=== PATIENT | female | born 1970 | race Caucasian/White ===

== ENCOUNTER → 2016-04-13 | Outpatient (CLI) | payer BC ==
--- NOTE | 2016-04-14 11:26 | MM ---
Reason for exam: screening (asymptomatic). Last mammogram was performed 5 months ago. History: Patient had first child at age 33. Family history of breast cancer in sister at age 47. MG discontinued stereo core LT of the left breast, April 22, 2015. Physical Findings: A clinical breast exam by your physician is recommended on an annual basis and results should be correlated with mammographic findings. MG Screening Mammo w CAD Bilateral CC and MLO view(s) were taken. Prior study comparison: November 11, 2015, left breast MG diagnostic mammo LT w CAD. April 14, 2015, left breast MG 3d work up w/cad LT. There are scattered fibroglandular densities. There is no discrete abnormality. No significant changes when compared with prior studies. ASSESSMENT: Negative, BI-RAD 1 RECOMMENDATION: Routine screening mammogram of both breasts in 1 year.
== END | disposition home or self-care (01) ==
LOC: RADMAMWWP 07:37
PROVIDERS: ATTEND Family Medicine
DX: Z12.31 Encounter for screening mammogram for malignant neoplasm of breast (principal)

== ENCOUNTER → 2020-04-27 | Outpatient (CLI) | payer BC ==
--- NOTE | 2020-04-29 09:55 | MM ---
Reason for exam: screening (asymptomatic). Last mammogram was performed 4 years ago. History: Patient had first child at age 33. Family history of breast cancer in sister at age 47. MG discontinued stereo core LT of the left breast, April 22, 2015. Took hormonal contraceptives for 1 year. Physical Findings: A clinical breast exam by your physician is recommended on an annual basis and results should be correlated with mammographic findings. MG Screening Mammo w CAD Bilateral CC and MLO view(s) were taken. Prior study comparison: April 13, 2016, bilateral MG screening mammo w CAD. November 11, 2015, left breast MG diagnostic mammo LT w CAD. The breast tissue is heterogeneously dense. This may lower the sensitivity of mammography. Posterior upper outer quadrant focal asymmetry on the right is more defined. Anterior medial asymmetric density also on the right is more defined. ASSESSMENT: Incomplete: need additional imaging evaluation, BI-RAD 0 RECOMMENDATION: Special view mammogram of the right breast. (3D) If lesion persists on supplemental views, image directed ultrasound is recommended. [facility] will attempt to contact patient to return for supplemental views and ultrasound if indicated.
== END ==
LOC: RADMAMWWP 09:28
PROVIDERS: ATTEND Family Medicine
DX: Z12.31 Encounter for screening mammogram for malignant neoplasm of breast (principal); Z80.3 Family history of malignant neoplasm of breast
CPT/HCPCS: 77067

== ENCOUNTER → 2020-05-07 | Outpatient (CLI) | payer BC ==
--- NOTE | 2020-05-08 12:04 | MM ---
Reason for exam: additional evaluation requested from abnormal screening. Last mammogram was performed less than 1 month ago. History: Patient had first child at age 33. Family history of breast cancer in sister at age 47. MG discontinued stereo core LT of the left breast, April 22, 2015. Took hormonal contraceptives for 1 year. Physical Findings: Nurse did not find any significant physical abnormalities on exam. MG 3D Work Up W/Cad RT Spot compression CC, spot compression MLO, and LM view(s) were taken of the right breast. Prior study comparison: April 27, 2020, bilateral MG screening mammo w CAD. April 13, 2016, bilateral MG screening mammo w CAD. The breast tissue is heterogeneously dense. This may lower the sensitivity of mammography. Persistent nodularity. Ultrasound recommended. These results were verbally communicated with the patient and result sheet given to the patient on 05/07/20. ASSESSMENT: Incomplete: need additional imaging evaluation, BI-RAD 0 RECOMMENDATION: Ultrasound of the right breast.
--- NOTE | 2020-05-08 12:06 | USB ---
Reason for exam: additional evaluation requested from abnormal screening. History: Patient had first child at age 33. Family history of breast cancer in sister at age 47. MG discontinued stereo core LT of the left breast, April 22, 2015. Took hormonal contraceptives for 1 year. US Breast Workup RT Right complete breast ultrasound includes all four quadrants, the retroareolar region and axilla. Finding demonstrates a 0.3 x 0.5 x 0.3cm oval, cystic lesion at 4 o'clock, a 0.4 x 0.4 x 0.3cm oval, solid, hyperechoic lipoma at 4 o'clock, a 0.6 x 0.5 x 0.6cm oval, cystic lesion at 10 o'clock, a 0.4 x 0.4 x 0.5c, oval, cystic lesion at 10 o'clock and a 2.8 x 1.4 x 1.0cm oval lymph node at the axilla. These results were verbally communicated with the patient and result sheet given to the patient on 05/07/20. ASSESSMENT: Probably benign, BI-RAD 3 RECOMMENDATION: Ultrasound of the right breast in 6 months.
== END | disposition home or self-care (01) ==
LOC: RADMAMWWP 07:43
PROVIDERS: ATTEND Family Medicine
DX: R92.8 Other abnormal and inconclusive findings on diagnostic imaging of breast (principal); D17.39 Benign lipomatous neoplasm of skin and subcutaneous tissue of other sites; N60.01 Solitary cyst of right breast; Z80.3 Family history of malignant neoplasm of breast
CPT/HCPCS: 77061; 77065

== ENCOUNTER → 2020-05-19 | Outpatient (CLI) | payer BC ==
[2020-05-19 08:44] VITALS: BP 131/84; PULSE 70; RESP 18; TEMP 98.4
--- NOTE | 2020-05-19 09:38 | P.HPOB ---
History of Present Illness H&P Date: 05/19/20 Chief Complaint: The patient is here for her routine gynecologic exam. This is a 50-year-old with an LMP of 2010. She is here to establish with this office. She is status post endometrial ablation in 2010 and has been amenorrheic since then. She did experience some hot flashes a few years after her ablation. It has been about 3 years since her last pelvic exam. She is without gynecologic complaints. Review of Systems Weight has been stable. She denies respiratory or cardiac problems. GI: Occasional constipation and occasional loose stools. She has had these issues since her gallbladder was removed. Past Medical History Past Medical History: Hypertension, Thyroid Disorder Additional Past Medical History / Comment(s): Hypothyroid. Obesity. 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 History of Any Multi-Drug Resistant Organisms: None Reported Past Surgical History: Section, Cholecystectomy, Uterine Ablation Additional Past Surgical History / Comment(s): Endometrial ablation 2010. Left oophorectomy 2005. Colonoscopy 2010(next after 10yr) Past Psychological History: Depression Additional Psychological History / Comment(s): Depression no longer requires medication. Smoking Status: Former smoker Past Alcohol Use History: Occasional (2 per month) Additional Past Alcohol Use History / Comment(s): Quit smoking in 2000. Past Drug Use History: None Reported Additional History: She has been since 1999. They have not been sexually active for more than 3 years. 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 - Past Family History Father Family Medical History: Myocardial Infarction ([place]) Mother Family Medical History: Cancer, CVA/TIA, Hyperlipidemia Additional Family Medical History / Comment(s): Liver cancer. Sister(s) Family Medical History: Cancer Additional Family Medical History / Comment(s): Breast cancer. Another sister had some type of gynecologic cancer but she is uncertain of the type. Medications and Allergies Home Medications Medication Instructions Recorded Confirmed Type Aspirin 81 mg PO DAILY 05/19/20 05/19/20 History Calcium Carb-Vit D 500Mg-5Mcg 1 each PO DAILY 05/19/20 05/19/20 History [Oscal 500+D 5 Mcg (200 Iu)] Levothyroxine Sodium 125 mcg PO DAILY 05/19/20 05/19/20 History Lisinopril-Hctz 20-12.5 mg 1 tab PO DAILY 05/19/20 05/19/20 History [Zestoretic 20-12.5] Zinc 50 mg PO DAILY 05/19/20 05/19/20 History Allergies Allergy/AdvReac Type Severity Reaction Status Date / Time No Known Allergies Allergy Verified 05/19/20 08:37 Exam Vital Signs Temp Pulse Resp BP Pulse Ox 05/19/20 08:40 98.4 F 70 18 131/84 99 Intake and Output 05/18/20 05/19/20 05/19/20 22:59 06:59 14:59 Other: Weight 124.738 kg Height 5 feet 6-1/2 inches, weight 275 pounds, BMI 43.7. This is a well-developed well-nourished heavyset white female who is alert and oriented times 3 in no acute distress. HEENT: Within normal limits. NECK: Supple without mass or thyromegaly. CHEST AND LUNGS: Clear to auscultation. HEART: Regular rate and rhythm. BREASTS: Are without mass or discharge. AXILLARY EXAM: Negative for adenopathy. BACK: Negative for CVA tenderness. ABDOMEN: Soft, nontender, without palpable masses. PELVIC EXAM: Normal external genitalia with minimal atrophy. Cervix and vagina appear normal with minimal atrophy. There is no unusual discharge. There is no evidence of prolapse. The uterus is midposition, nongravid size and nontender. There are no palpable adnexal masses or tenderness. Bimanual examination is somewhat limited secondary to her size. RECTAL EXAM: Rectovaginal exam is negative for mass or tenderness and is negative for occult blood. EXTREMITIES: Nontender. IMPRESSION: 1. 50-year-old probable menopausal female who is status post endometrial ablation, with normal gynecologic exam. 2. Obesity. 3. Family history of breast cancer and another sister with some other type of gynecologic cancer. Incomplete database. PLAN: 1. Pap smear cotest was performed. 2. Self breast awareness was discussed with the patient. 3. Screening mammogram was done on 04/27/2020 which required a right breast workup. This was felt to be probably benign and six-month follow-up right breast ultrasound was recommended. The order slip was given to the patient for this. 4. Osteoporosis prevention was discussed. I have stressed the importance of adequate calcium, vitamin D and regular exercise. Recommended amounts of calcium and vitamin D were also discussed. 5. She states she is due for her colonoscopy and has scheduled for later this month. 6. I have recommended that she try to find out what type of cancer her sister had. She states it may have been cervical cancer but it may have been ovarian cancer. If she finds that her sister had ovarian cancer, I will be recommending yearly pelvic ultrasounds. We have also discussed possible cancer genetics testing as an option if her sister had ovarian cancer. 7. She was advised to return in one year for her annual well woman exam.
== END | disposition home or self-care (01) ==
LOC: WWCWWP 08:26
PROVIDERS: ATTEND Obstetrics & Gynecology
DX: Z12.31 Encounter for screening mammogram for malignant neoplasm of breast (principal); E66.9 Obesity, unspecified; Z80.3 Family history of malignant neoplasm of breast; E03.9 Hypothyroidism, unspecified; I10 Essential (primary) hypertension; Z87.891 Personal history of nicotine dependence

== ENCOUNTER 2020-06-05 11:20 | Day surgery (SDC) | payer BC ==
[2020-06-02 11:14] VITALS: BMI 43.0
[~2020-06-05 11:20] MED LIST: LACTATED RINGERS 1,000 ML IV SCH
[2020-06-05 11:58] VITALS: TEMP 98
[2020-06-05] MEDS ORDERED: LIDOCAINE 1% INJ 10MG/ML (20 ML MDV) ONE (12:32)
[2020-06-05] MEDS ORDERED: PROPOFOL 10 MG/ML 20 ML VIAL IV ONE (12:32)
--- NOTE | 2020-06-05 12:50 | P.PCN ---
Date of Procedure: 06/05/20 Procedure(s) Performed: BRIEF HISTORY: Patient is a 50-year-old pleasant white female scheduled for an elective colonoscopy as a part of screening for colorectal neoplasia. PROCEDURE PERFORMED: Colonoscopy. PREOPERATIVE DIAGNOSIS: Screening for colon cancer. IV sedation per Anesthesia. PROCEDURE: After informed consent was obtained, the patient, was brought into the endoscopy unit. IV sedation was administered by Anesthesia under continuous monitoring. Digital rectal examination was normal. Initially the Olympus CF-160 flexible video colonoscope was then inserted in the rectum, gradually advanced into the cecum without any difficulty. Careful examination was performed as the scope was gradually being withdrawn. Ileocecal valve and the appendiceal orifice were visualized and appeared normal. Prep was excellent. Mucosa of the cecum, ascending colon, transverse colon, descending colon, sigmoid colon, and rectum appeared normal. Retroflexion was performed in the rectum and no lesions were seen. The patient tolerated the procedure well. IMPRESSION: Normal-appearing colon from rectum to cecum with no evidence of colorectal neoplasia . RECOMMENDATIONS: Findings of this examination were discussed with the patient as well as a family. She was advised to have a repeat screening colonoscopy in 10 years.
[2020-06-05 12:56] VITALS: PULSE 66; RESP 18
[2020-06-05 13:19] VITALS: BP 147/80
== END 2020-06-05 13:32 | disposition home or self-care (01) ==
LOC: ORWHC2ENDO 11:20
PROVIDERS: ATTEND Internal Medicine Gastroenterology
DX: Z12.11 Encounter for screening for malignant neoplasm of colon (principal); I10 Essential (primary) hypertension; E07.9 Disorder of thyroid, unspecified; K21.9 Gastro-esophageal reflux disease without esophagitis; Z79.82 Long term (current) use of aspirin; Z79.890 Hormone replacement therapy; Z79.899 Other long term (current) drug therapy
CPT/HCPCS: 81025; J2001; J2704; G0121; 45378

== ENCOUNTER → 2020-10-29 | Outpatient (CLI) | payer BC ==
--- NOTE | 2020-10-29 11:37 | USB ---
Reason for exam: follow-up at short interval from prior study. History: Patient had first child at age 33. Family history of breast cancer in sister at age 47. MG discontinued stereo core LT of the left breast, April 22, 2015. Took hormonal contraceptives for 1 year. Physical Findings: Nurse did not find any significant physical abnormalities on exam. US Breast Limited RT Right limited breast ultrasound including focal area of concern, retroareolar and axilla demonstrates a 0.4 x 0.3 x 0.3cm cystic lesion at 4 o'clock, a 0.4 x 0.4 x 0.4cm cystic lesion at 10 o'clock, these two likely correspond to the mammographic findings, 6 month follow up mammogram recommended and a 0.4 x 0.5 x 0.4cm cystic lesion at the posterior nipple. Scanned 3-6 o'clock and 9-12 o'clock including axilla. These results were verbally communicated with the patient and result sheet given to the patient on 10/29/20. ASSESSMENT: Probably benign, BI-RAD 3 RECOMMENDATION: Follow-up diagnostic mammogram of both breasts in 6 months.
== END | disposition home or self-care (01) ==
LOC: RADUSWWP 07:37
PROVIDERS: ATTEND Obstetrics & Gynecology
DX: N60.01 Solitary cyst of right breast (principal); Z80.3 Family history of malignant neoplasm of breast; Z79.3 Long term (current) use of hormonal contraceptives

== ENCOUNTER → 2020-11-11 | Outpatient (CLI) | payer BC ==
--- NOTE | 2020-11-12 10:41 | US ---
EXAMINATION TYPE: US thyroid st tissue head/neck DATE OF EXAM: 11/11/2020 COMPARISON: NONE CLINICAL HISTORY: E04.9 Nontoxic goiter, unspecified. Taking thyroid medication x 10 to 12 years. GLAND SIZE: Right Lobe: 4.4 x 1.4 x 1.7 cm Overall Parenchyma: heterogenous Left Lobe: 3.9 x 1.5 x 1.2 cm Overall Parenchyma: heterogeneous Isthmus Thickness: 0.6 cm NODULES RIGHT: # of nodules measured on right: 0 LEFT: # of nodules measured on left: 1 1. 1.3 X 0.9 x 0.9 cm, upper medial, mixed cystic, hypoechoic nodule, which is wide as is tall, wit h ill-defined margins, without echogenic foci. ISTHMUS: # of nodules measured in the isthmus: 0 Bilateral neck scanned: lymph node seen by US located superior to right thyroid = 1.5 x 1.4 x 0.6cm a nd left upper neck lymph node also seen = 1.2 x 0.6 x 0.4cm. IMPRESSION: 1. The globes are diffusely heterogenous. 2. Mixed the nodule left thyroid lobe greater than 1 cm.
== END | disposition home or self-care (01) ==
LOC: RADUSWWP 15:25
PROVIDERS: ATTEND Family Medicine
DX: E04.1 Nontoxic single thyroid nodule (principal)
CPT/HCPCS: 76536

== ENCOUNTER → 2021-05-25 | Outpatient (CLI) | payer OTHER ==
--- NOTE | 2021-05-26 15:03 | MM ---
Reason for exam: screening (asymptomatic). Last mammogram was performed 1 year and 1 month ago. History: Patient had first child at age 33. Family history of breast cancer in sister at age 47. MG discontinued stereo core LT of the left breast, April 22, 2015. Took hormonal contraceptives for 1 year. Physical Findings: A clinical breast exam by your physician is recommended on an annual basis and results should be correlated with mammographic findings. MG 3D Screening Mammo W/Cad Bilateral CC and MLO view(s) were taken. XCCL view(s) were taken of the left breast. Technologist: Beth Ybarra, RT (R)(M) Prior study comparison: May 07, 2020, right breast MG 3d work up w/cad RT. April 27, 2020, bilateral MG screening mammo w CAD. The breast tissue is heterogeneously dense. This may lower the sensitivity of mammography. There is no discrete abnormality. No significant changes when compared with prior studies. ASSESSMENT: Negative, BI-RAD 1 RECOMMENDATION: Routine screening mammogram of both breasts in 1 year.
== END | disposition home or self-care (01) ==
LOC: RADMAMWWP 07:56
PROVIDERS: ATTEND Family Medicine
DX: Z12.31 Encounter for screening mammogram for malignant neoplasm of breast (principal); Z80.3 Family history of malignant neoplasm of breast
CPT/HCPCS: 77063; 77067

== ENCOUNTER → 2021-06-02 | Outpatient (CLI) | payer OTHER ==
[2021-06-02 08:04] VITALS: BP 148/83; PULSE 63; RESP 17; TEMP 97.9
--- NOTE | 2021-06-02 08:36 | P.HPOB ---
History of Present Illness H&P Date: 06/02/21 Chief Complaint: The patient is here for her routine gynecologic exam. This is a 51-year-old with an LMP of 2010. The patient has been amenorrheic since she had her endometrial ablation in 2010. The patient is without gynecologic complaints and denies any vaginal bleeding. She has been experiencing some mild hot flashes which are unchanged. Review of Systems She has lost 43 pounds over the past year and this has been intentional and done with dietary changes. She denies respiratory, cardiac, or GI problems. Past Medical History Past Medical History: Hypertension, Thyroid Disorder Additional Past Medical History / Comment(s): Hypothyroid. Obesity. 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 History of Any Multi-Drug Resistant Organisms: None Reported Past Surgical History: Section, Cholecystectomy, Uterine Ablation Additional Past Surgical History / Comment(s): Endometrial ablation 2010. Left oophorectomy 2005. Colonoscopy 2020(next after 10yr) Past Anesthesia/Blood Transfusion Reactions: No Reported Reaction Past Psychological History: Depression Additional Psychological History / Comment(s): Depression no longer requires medication. Smoking Status: Former smoker Past Alcohol Use History: Occasional (1 per month) Additional Past Alcohol Use History / Comment(s): Quit smoking in 2000. Past Drug Use History: None Reported Additional History: She has been since 1999. 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 - Past Family History Father Family Medical History: Myocardial Infarction ([place]) Mother Family Medical History: Cancer, CVA/TIA, Hyperlipidemia Additional Family Medical History / Comment(s): Liver cancer. Sister(s) Family Medical History: Cancer Additional Family Medical History / Comment(s): Breast cancer. Another sister had some type of gynecologic cancer but she is uncertain of the type. Medications and Allergies Home Medications Medication Instructions Recorded Confirmed Type Aspirin 81 mg PO DAILY 05/19/20 06/02/21 History Levothyroxine Sodium 125 mcg PO DAILY 05/19/20 06/02/21 History Lisinopril-Hctz 20-12.5 mg 1 tab PO DAILY 05/19/20 06/02/21 History [Zestoretic 20-12.5] Zinc 50 mg PO DAILY 05/19/20 06/02/21 History Allergies Allergy/AdvReac Type Severity Reaction Status Date / Time No Known Allergies Allergy Verified 06/02/21 08:01 Exam Vital Signs Temp Pulse Resp BP Pulse Ox 06/02/21 08:02 97.9 F 63 17 148/83 100 Intake and Output 06/01/21 06/02/21 06/02/21 22:59 06:59 14:59 Other: Weight 105.233 kg Height 5 feet 8 inches, weight 232 pounds, BMI 35.3. This is a well-developed well-nourished white female who is alert and oriented times 3 in no acute distress. HEENT: Within normal limits. NECK: Supple without mass or thyromegaly. CHEST AND LUNGS: Clear to auscultation. HEART: Regular rate and rhythm. BREASTS: Are without mass or discharge. AXILLARY EXAM: Negative for adenopathy. BACK: Negative for CVA tenderness. ABDOMEN: Soft, nontender, without palpable masses. PELVIC EXAM: Normal external genitalia. Cervix and vagina appear normal. There is no unusual discharge. There is no evidence of prolapse. The uterus is midposition, nongravid size and nontender. There are no palpable adnexal masses or tenderness. RECTAL EXAM: Rectovaginal exam is negative for mass or tenderness and is negative for occult blood. EXTREMITIES: Nontender. IMPRESSION: 1. 51-year-old menopausal female with normal gynecologic exam. 2. Previous ASCUS Pap smear with negative high-risk HPV testing on 05/19/2020. 3.Intentional weight loss with dietary changes. PLAN: 1. Pap smear was deferred. We will plan on repeating a Pap smear cotest at her next annual well woman examination. 2. Self breast awareness was discussed with the patient. We have also discussed symptoms associated with inflammatory breast cancer. 3. Screening mammogram was negative on 05/26/2021. This will be repeated after 1 year. 4. Osteoporosis prevention was discussed. 5. She was encouraged to continue sensible weight loss with good nutrition and exercise. 6. She is vaccinated for Covid. She did have a mild case of Covid last year. 7. She was advised to return in one year for her annual well woman exam.
== END ==
LOC: WWCWWP 07:55
PROVIDERS: ATTEND Obstetrics & Gynecology
DX: Z01.419 Encounter for gynecological examination (general) (routine) without abnormal findings (principal); E66.9 Obesity, unspecified; I10 Essential (primary) hypertension; E03.9 Hypothyroidism, unspecified; F32.A Depression, unspecified; Z87.891 Personal history of nicotine dependence; Z79.890 Hormone replacement therapy; Z79.899 Other long term (current) drug therapy; Z68.35 Body mass index [BMI] 35.0-35.9, adult

== ENCOUNTER → 2021-10-20 | Outpatient (CLI) | payer OTHER ==
--- NOTE | 2021-10-21 14:06 | MR ---
EXAMINATION TYPE: MR angio head wo con DATE OF EXAM: 10/20/2021 COMPARISON: NONE HISTORY: Family history of aneurysm TECHNIQUE: Time of flight images focusing on the [place] were performed without contrast. 2- D and 3-D postprocessing imaging is performed on independent workstation. FINDINGS: Codominant vertebral arteries patent to basilar junction. No significant focal stenosis or aneurysm in the posterior circulation. Patent right-sided posterior communicating artery. Smaller patrica iber but patent left-sided posterior communicating artery. Images of the anterior circulation show patent fenestrated anterior communicating artery. There is no significant focal stenosis or aneurysm in the anterior circulation IMPRESSION: No aneurysm at level of the [place] of [place].
== END | disposition home or self-care (01) ==
LOC: RADMRIMAIN 21:00
PROVIDERS: ATTEND Family Medicine
DX: Z82.49 Family history of ischemic heart disease and other diseases of the circulatory system (principal)
CPT/HCPCS: 70544

== ENCOUNTER → 2022-06-28 | Outpatient (CLI) | payer BC ==
--- NOTE | 2022-06-29 08:51 | MM ---
Reason for Exam: Screening (asymptomatic). Last mammogram was performed 1 year(s) and 1 month(s) ago. Patient History: Menarche at age 10. First Full-Term at age 33. Late child-bearing (after 30). Postmenopausal. Patient used Hormonal Contraceptives for 1 year. 04/22/2015, MG discontinued stereo core LT on the left side. Sister had breast cancer, age 47. Risk Values: Radha 5 year model risk: 2.3%. NCI Lifetime model risk: 16.2%. Prior Study Comparison: 04/27/2020 Bilateral Screening Mammogram, [facility]. 05/07/2020 Right Diagnostic Mammogram, [facility]. 05/25/2021 Bilateral Screening Mammogram, [facility]. Tissue Density: The breast tissue is heterogeneously dense. This may lower the sensitivity of mammography. Findings: Analyzed By CAD. There is no suspicious group of microcalcifications or new suspicious mass in either breast. Benign round calcifications within the right breast. No significant change from prior exams. Overall Assessment: Benign, BI-RAD 2 Management: Screening Mammogram of both breasts in 1 year. A clinical breast exam by your physician is recommended on an annual basis and results should be correlated with mammographic findings. Electronically signed and approved by: Sukhjinder Shrestha D.O.
== END | disposition home or self-care (01) ==
LOC: RADMAMWWP 08:13
PROVIDERS: ATTEND Family Medicine
DX: Z12.31 Encounter for screening mammogram for malignant neoplasm of breast (principal); Z78.0 Asymptomatic menopausal state; Z80.3 Family history of malignant neoplasm of breast
CPT/HCPCS: 77063; 77067

== ENCOUNTER → 2022-06-28 | Outpatient (CLI) | payer BC ==
[2022-06-28 08:36] VITALS: BP 123/78; PULSE 63; RESP 16; TEMP 98.2
--- NOTE | 2022-06-28 09:10 | P.HPOB ---
History of Present Illness H&P Date: 06/28/22 Chief Complaint: The patient is here for her routine gynecologic exam and ma mmogram. This is a 52-year-old with an LMP of 2010. She has been amenorrheic since her endometrial ablation in 2010. She believes she went through the menopausal change a couple years ago and continues to have some hot flashes but they are mild. She is without gynecologic complaints and denies any postmenopausal bleeding. Review of Systems The patient has gained 16 pounds over the last year. She denies respiratory or cardiac problems. GI: Occasional constipation. 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 Obesity. 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 History of Any Multi-Drug Resistant Organisms: None Reported Past Surgical History: Section, Cholecystectomy, Uterine Ablation Additional Past Surgical History / Comment(s): Endometrial ablation 2010. Left oophorectomy 2005. Colonoscopy 2020(next after 10yr) Past Anesthesia/Blood Transfusion Reactions: No Reported Reaction Past Psychological History: Depression Additional Psychological History / Comment(s): Depression no longer requires medication. Smoking Status: Former smoker Past Alcohol Use History: Occasional (One per week) Additional Past Alcohol Use History / Comment(s): Quit smoking in 2000. Past Drug Use History: None Reported Additional History: She has been since 1999. 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 - Past Family History Father Family Medical History: Myocardial Infarction ([place]) Mother Family Medical History: Cancer, CVA/TIA, Hyperlipidemia Additional Family Medical History / Comment(s): Liver cancer. Sister(s) Family Medical History: Cancer Additional Family Medical History / Comment(s): Breast cancer. Another sister had a neuroendocrine endometrial cancer. A third sister had a cerebral aneurysm and CVA. Medications and Allergies Home Medications Medication Instructions Recorded Confirmed Type Levothyroxine Sodium 125 mcg PO DAILY 05/19/20 06/28/22 History Lisinopril-Hctz 20-12.5 mg 1 tab PO DAILY 05/19/20 06/28/22 History [Zestoretic 20-12.5] Zinc 50 mg PO DAILY 05/19/20 06/28/22 History Cholecalciferol [Vitamin D3 (25 50 mcg PO DAILY 06/28/22 06/28/22 History Mcg = 1000 Iu)] Allergies Allergy/AdvReac Type Severity Reaction Status Date / Time No Known Allergies Allergy Verified 06/28/22 08:28 Exam Vital Signs Temp Pulse Resp BP Pulse Ox 06/28/22 08:30 98.2 F 63 16 123/78 100 Intake and Output 06/27/22 06/28/22 06/28/22 22:59 06:59 14:59 Other: Weight 112.491 kg Height 5 feet 7 inches, weight 248 pounds, BMI 38.8. This is a well-developed well-nourished white female who is alert and oriented times 3 in no acute distress. HEENT: Within normal limits. NECK: Supple without mass or thyromegaly. CHEST AND LUNGS: Clear to auscultation. HEART: Regular rate and rhythm. BREASTS: Are without mass or discharge. AXILLARY EXAM: Negative for adenopathy. BACK: Negative for CVA tenderness. ABDOMEN: Soft, nontender, without palpable masses. PELVIC EXAM: Normal external genitalia with mild atrophy. Cervix and vagina appear normal with minimal atrophy. There is no unusual discharge. There is no evidence of prolapse. The uterus is midposition, nongravid size and nontender. There are no palpable adnexal masses or tenderness. RECTAL EXAM: Rectovaginal exam is negative for mass or tenderness and is negative for occult blood. EXTREMITIES: Nontender. IMPRESSION: 1. 52-year-old menopausal female with normal gynecologic exam. 2. Previous Pap smear showed ASCUS with negative high-risk HPV testing on 05/19/2020. 3. Family history of breast cancer, endometrial cancer and liver cancer in first-degree relatives. PLAN: 1. Pap smear cotest was performed. 2. Self breast awareness was discussed with the patient. We have also discussed symptoms associated with inflammatory breast cancer. 3. Screening mammogram was done today. 4. We have again discussed cancer genetic counseling and testing. She states she will consider this. She would also like to speak with her sisters about this type of testing and there are cancers. She will let me know if she would like a referral for this. 5. Osteoporosis prevention was discussed. I have stressed the importance of adequate calcium, vitamin D and regular exercise. Recommended amounts of calcium and vitamin D were also discussed. 6. She was advised to return in one year for her annual well woman exam.
== END ==
LOC: WWCWWP 08:11
PROVIDERS: ATTEND Obstetrics & Gynecology
DX: Z01.419 Encounter for gynecological examination (general) (routine) without abnormal findings (principal); Z80.3 Family history of malignant neoplasm of breast; Z98.890 Other specified postprocedural states; Z79.890 Hormone replacement therapy; Z79.899 Other long term (current) drug therapy; I10 Essential (primary) hypertension; E03.9 Hypothyroidism, unspecified; E66.9 Obesity, unspecified; E06.3 Autoimmune thyroiditis; Z87.891 Personal history of nicotine dependence

== ENCOUNTER → 2022-12-17 | Outpatient (CLI) | payer BC ==
[2022-12-17 12:43] LABS: Basophils # (A) 0.02 X 10*3/uL (0.00-0.10); Basophils % (A) 0.4 %; Eosinophils # (A) 0.29 X 10*3/uL (0.04-0.35); Eosinophils % (A) 5.9 %; HCT 37.3 % (37.2-46.3); HGB 12.1 d/dL (12.0-15.0); Lymphocytes # (A) 1.81 X 10*3/uL (0.90-5.00); Lymphocytes % (A) 36.9 %; MCHC 32.4 d/dL (32.0-37.0); MCV 92.6 FL (80.0-97.0); Mean Platelet Volume 12.5 FL (9.5-12.2); Monocytes # (A) 0.36 X 10*3/uL (0.20-1.00); Monocytes % (A) 7.3 %; NRBC Per 100 WBC 0 X 10*3/uL (0.00-0.01); Neutrophils # (A) 2.41 X 10*3/uL (1.80-7.70); Neutrophils % (A) 49.3 %; Platelet Count 172 X 10*3/uL (140-440); RBC 4.03 X 10*6/uL (4.10-5.20); RDW 13.1 % (11.5-14.5)
[2022-12-17 14:45] LABS: % Iron Saturation 28.57 (12.00-45.00); ALT 37 U/L (8-44); AST 25 U/L (13-35); Albumin 4.2 d/dL (3.8-4.9); Albumin/Globulin Ratio 1.62 Ratio (1.60-3.17); Alkaline Phosphatase 73 U/L (41-126); Bilirubin, Conjugated <0.20 mg/dL (0.20-0.40); Bilirubin,Unconjugated >0.20 mg/dL (0.20-1.00); Chol/HDL Ratio 4.16 Ratio; Globulin 2.6 d/dL (1.6-3.3); Iron 86 UG/DL (50-170); LDL Cholesterol,Calculated 132.3 mg/dL (0.0-131.0); Total Bilirubin 0.4 mg/dL (0.3-1.2); Total Iron Binding Capacity 301 UG/DL (228-460); Total Protein 6.8 d/dL (6.2-8.2)
== END | disposition home or self-care (01) ==
LOC: LABWHC1 08:16
PROVIDERS: ATTEND Internal Medicine Endocrinology, Diabetes & Metabolism
DX: E03.8 Other specified hypothyroidism (principal); E78.2 Mixed hyperlipidemia; L65.8 Other specified nonscarring hair loss
CPT/HCPCS: 36415; 80061; 80076; 82172; 82306; 82607; 82728; 83036; 83540; 83550; 83695; 84403; 84443; 85025

== ENCOUNTER → 2023-07-18 | Outpatient (CLI) | payer BC ==
[2023-07-18 08:03] VITALS: BP 115/76; PULSE 67; RESP 16; TEMP 98.2
--- NOTE | 2023-07-18 08:27 | P.HPOB ---
History of Present Illness H&P Date: 07/18/23 Chief Complaint: The patient is here for her routine gynecologic exam and ma mmogram. This is a 53-year-old G1, P1 with an LMP of 2010. The patient is without gynecologic complaints and denies any postmenopausal bleeding. She has another sister who was diagnosed with breast cancer this year. This makes 3 sisters with breast cancer. 1 recently went through cancer genetic testing and was BRCA negative. Review of Systems The patient has lost about 10 years over the past year and she has been trying to lose weight. She denies respiratory or cardiac problems. GI: Long history of episodes of loose stool alternating with occasional constipation. She states this has been since her gallbladder surgery years ago. Past Medical History Past Medical History: Hypertension, Thyroid Disorder Additional Past Medical History / Comment(s): Hypothyroid. Obesity. 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 History of Any Multi-Drug Resistant Organisms: None Reported Past Surgical History: Section, Cholecystectomy, Uterine Ablation Additional Past Surgical History / Comment(s): Endometrial ablation 2010. Left oophorectomy 2005. Colonoscopy 2020(next after 10yr) Past Anesthesia/Blood Transfusion Reactions: No Reported Reaction Past Psychological History: Depression Additional Psychological History / Comment(s): Depression no longer requires medication. Smoking Status: Former smoker Past Alcohol Use History: Occasional Additional Past Alcohol Use History / Comment(s): Quit smoking in 2000. Past Drug Use History: None Reported - Past Family History Father Family Medical History: Myocardial Infarction ([place]) Mother Family Medical History: Cancer, CVA/TIA, Hyperlipidemia Additional Family Medical History / Comment(s): Liver cancer. Sister(s) Family Medical History: Cancer Additional Family Medical History / Comment(s): Breast cancer(3 sisters, 1 of which tested negative for BRCA. Another sister had a neuroendocrine endometrial cancer. A third sister had a cerebral aneurysm and CVA. Medications and Allergies Home Medications Medication Instructions Recorded Confirmed Type Levothyroxine Sodium 125 mcg PO DAILY 05/19/20 07/18/23 History Lisinopril-Hctz 20-12.5 mg 1 tab PO DAILY 05/19/20 07/18/23 History [Zestoretic 20-12.5] Cholecalciferol [Vitamin D3 (25 50 mcg PO DAILY 06/28/22 07/18/23 History Mcg = 1000 Iu)] Allergies Allergy/AdvReac Type Severity Reaction Status Date / Time No Known Allergies Allergy Verified 07/18/23 08:00 Exam Vital Signs Temp Pulse Resp BP Pulse Ox 07/18/23 08:00 98.2 F 67 16 115/76 99 Intake and Output 07/17/23 07/18/23 07/18/23 22:59 06:59 14:59 Other: Weight 107.955 kg Height 5 feet 8 inches, weight 238 pounds, BMI 36.2. This is a well-developed well-nourished white female who is alert and oriented times 3 in no acute distress. HEENT: Within normal limits. NECK: Supple without mass or thyromegaly. CHEST AND LUNGS: Clear to auscultation. HEART: Regular rate and rhythm. BREASTS: Are without mass or discharge. AXILLARY EXAM: Negative for adenopathy. BACK: Negative for CVA tenderness. ABDOMEN: Soft, nontender, without palpable masses. PELVIC EXAM: Normal external genitalia with mild atrophy. Cervix and vagina appear normal with mild atrophy. There is no unusual discharge. There is no evidence of prolapse. The uterus is midposition, nongravid size and nontender. There are no palpable adnexal masses or tenderness. RECTAL EXAM: Rectovaginal exam is negative for mass or tenderness and is negative for occult blood. EXTREMITIES: Nontender. IMPRESSION: 1. 53-year-old menopausal female with normal gynecologic exam. 2. Strong family history of breast cancer and endometrial cancer in her sisters. PLAN: 1. Pap smear was deferred since she had a negative Pap smear cotest on 05/14. 2. Self breast awareness was discussed with the patient. We have also discussed symptoms associated with inflammatory breast cancer. 3. Screening mammogram will be done today. 4. Osteoporosis prevention was discussed. 5. We have again discussed her strong family history of certain cancers including breast and endometrial cancer. We have again discussed the option of cancer genetic testing and counseling. She states she helped her sister go through this process and her sister tested negative for the BRCA gene. She understands the process and the testing. She will consider this and let me know if she wants to pursue this type of counseling and testing. She understands a negative test does not eliminate the chance of developing cancer and a positive test does not mean a person will develop cancer. She also understands that her sister testing negative for the BRCA gene does not mean she cannot have genetic mutations that could increase her risk. 6. She was advised to return in one year for her annual well woman exam.
--- NOTE | 2023-07-19 14:26 | MM ---
Reason for Exam: Screening (asymptomatic). Last mammogram was performed 1 year(s) and 1 month(s) ago. Patient History: Menarche at age 10. First Full-Term at age 33. Late child-bearing (after 30). Postmenopausal. Patient used Hormonal Contraceptives for 1 year. 04/22/2015, MG discontinued stereo core LT on the left side. Sister had breast cancer, age 47. Risk Values: Radha 5 year model risk: 2.4%. NCI Lifetime model risk: 15.9%. Prior Study Comparison: 05/07/2020 Right Diagnostic Mammogram, [facility]. 05/25/2021 Bilateral Screening Mammogram, [facility]. 06/28/2022 Bilateral MG 3D screening mammo w/cad, [facility]. Tissue Density: There are scattered areas of fibroglandular density. Findings: Analyzed By CAD. Right breast: There is no suspicious group of microcalcifications or new suspicious mass. Left breast: There is no suspicious group of microcalcifications or new suspicious mass. Overall Assessment: Negative, BI-RAD 1 Management: Screening Mammogram of both breasts in [address] [facility] will attempt to contact patient to return for supplemental views and ultrasound if indicated. Patient should continue monthly self-breast exams. A clinical breast exam by your physician is recommended on an annual basis. This exam should not preclude additional follow-up of suspicious palpable abnormalities. Note on Radha scores and lifetime risk: 1. A Radha score greater than 3% is considered moderate risk. If this is the case, consider specialist referral to assess eligibility for a risk reducing agent. 2. If overall lifetime risk for the development of breast cancer is 20% or higher, the patient may qualify for future screening with alternating mammogram and breast MRI. Electronically signed and approved by: Uday Zhou DO
== END ==
LOC: WWCWWP 07:40
PROVIDERS: ATTEND Obstetrics & Gynecology
DX: Z12.31 Encounter for screening mammogram for malignant neoplasm of breast (principal); Z78.0 Asymptomatic menopausal state; Z80.3 Family history of malignant neoplasm of breast; Z87.891 Personal history of nicotine dependence; Z80.49 Family history of malignant neoplasm of other genital organs
CPT/HCPCS: 77063; 77067

== ENCOUNTER → 2024-05-24 | Outpatient (CLI) | payer BC ==
[2024-05-24 15:18] LABS: Basophils # (A) 0.03 X 10*3/uL (0.00-0.10); Basophils % (A) 0.7 %; Eosinophils # (A) 0.14 X 10*3/uL (0.04-0.35); Eosinophils % (A) 3.1 %; HCT 38.3 % (37.2-46.3); HGB 12.6 g/dL (12.0-15.0); Lymphocytes # (A) 1.42 X 10*3/uL (0.90-5.00); Lymphocytes % (A) 31.8 %; MCH 30.4 pg (27.0-32.0); MCHC 32.9 g/dL (32.0-37.0); MCV 92.5 FL (80.0-97.0); Mean Platelet Volume 12.2 FL (9.5-12.2); Monocytes # (A) 0.34 X 10*3/uL (0.20-1.00); Monocytes % (A) 7.6 %; NRBC Per 100 WBC 0 X 10*3/uL (0.00-0.01); Neutrophils # (A) 2.52 X 10*3/uL (1.80-7.70); Neutrophils % (A) 56.6 %; Platelet Count 191 X 10*3/uL (140-440); RBC 4.14 X 10*6/uL (4.10-5.20); RDW 12.7 % (11.5-14.5); WBC 4.46 X 10*3/uL (4.50-10.00)
[2024-05-24 15:32] LABS: Blood Urea Nitrogen 17.6 mg/dL (9.0-27.0); Calcium 9.9 mg/dL (8.7-10.3); Carbon Dioxide 28.2 mmol/L (21.6-31.8); Chloride 100 mmol/L (96-109); Chol/HDL Ratio 3.71 Ratio; Glucose 91 mg/dL (70-110); LDL Cholesterol,Calculated 151.6 mg/dL (0.0-131.0); Potassium 4.4 mmol/L (3.5-5.5); Sodium 137 mmol/L (135-145); VLDL Calculation 12.82 mg/dL (5.00-40.00)
== END | disposition home or self-care (01) ==
LOC: LABWHC1 09:16
PROVIDERS: ATTEND Family Medicine
DX: Z00.00 Encounter for general adult medical examination without abnormal findings (principal); I10 Essential (primary) hypertension
CPT/HCPCS: 36415; 80048; 80061; 83036; 85025

== ENCOUNTER → 2024-07-30 | Outpatient (CLI) | payer BC ==
--- NOTE | 2024-07-30 08:08 | MM ---
Reason for Exam: Screening (asymptomatic). Last screening mammogram was performed 12 month(s) ago. Patient History: Menarche at age 10. First Full-Term at age 33. Late child-bearing (after 30). Postmenopausal. Patient used Hormonal Contraceptives for 1 year. 04/22/2015, MG discontinued stereo core LT on the left side. Sister had breast cancer, age 47. Risk Values: Radha 5 year model risk: 2.5%. NCI Lifetime model risk: 15.6%. Prior Study Comparison: 05/25/2021 Bilateral Screening Mammogram, [facility]. 06/28/2022 Bilateral MG 3D screening mammo w/cad, [facility]. 07/18/2023 Bilateral MG 3D screening mammo w/cad, [facility]. Tissue Density: There are scattered areas of fibroglandular density. Findings: Analyzed By CAD. Asymmetric density central lower aspect of the right breast CC view remains unchanged. Chronic nodularity medial anterior right cc view. There is no suspicious group of microcalcifications or new suspicious mass in either breast. Overall Assessment: Benign, BI-RAD 2 Management: Screening Mammogram of both breasts in 1 year. Patient should continue monthly self-breast exams. A clinical breast exam by your physician is recommended on an annual basis. This exam should not preclude additional follow-up of suspicious palpable abnormalities. Note on Radha scores and lifetime risk: 1. A Radha score greater than 3% is considered moderate risk. If this is the case, consider specialist referral to assess eligibility for a risk reducing agent. 2. If overall lifetime risk for the development of breast cancer is 20% or higher, the patient may qualify for future screening with alternating mammogram and breast MRI. [facility], , 07/30/2024 8:05 AM. Electronically signed and approved by: Luis A Bailey M.D. Radiologist
== END | disposition home or self-care (01) ==
LOC: RADMAMWWP 07:40
PROVIDERS: ATTEND Family Medicine
DX: Z12.31 Encounter for screening mammogram for malignant neoplasm of breast (principal); R92.323 Mammographic fibroglandular density, bilateral breasts; Z78.0 Asymptomatic menopausal state; Z80.3 Family history of malignant neoplasm of breast; Z92.0 Personal history of contraception
CPT/HCPCS: 77063; 77067

== ENCOUNTER → 2024-07-30 | Outpatient (CLI) | payer BC ==
[2024-07-30 08:09] VITALS: BP 105/66; PULSE 69; RESP 16; TEMP 98.2
--- NOTE | 2024-07-30 08:29 | P.HPOB ---
History of Present Illness H&P Date: 07/30/24 Chief Complaint: The patient is here for her routine gynecologic exam and ma mmogram. This is a 54-year-old G1, P1 with an LMP of 2010. The patient is without gynecologic complaints and denies any postmenopausal bleeding. She again is declining cancer genetic testing. Review of Systems She has lost about 20 pounds over the past year. She states this is intentional and has been done with diet and exercise. She would like to try to get under 200 pounds. She denies respiratory or cardiac problems. GI: Occasional constipation which is not new for her. Past Medical History Past Medical History: Hypertension, Thyroid Disorder Additional Past Medical History / Comment(s): Hypothyroid. 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 History of Any Multi-Drug Resistant Organisms: None Reported Past Surgical History: Section, Cholecystectomy, Uterine Ablation Additional Past Surgical History / Comment(s): Endometrial ablation 2010. Left oophorectomy 2005. Colonoscopy 2020(next after 10yr) Past Anesthesia/Blood Transfusion Reactions: No Reported Reaction Past Psychological History: Depression Additional Psychological History / Comment(s): Depression no longer requires medication. Smoking Status: Former smoker Past Alcohol Use History: Occasional (About 3 drinks per week.) Additional Past Alcohol Use History / Comment(s): Quit smoking in 2000. Past Drug Use History: None Reported Additional History: She has been since 1999. 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 - Past Family History Father Family Medical History: Myocardial Infarction ([place]) Mother Family Medical History: Cancer, CVA/TIA, Hyperlipidemia Additional Family Medical History / Comment(s): Liver cancer. Sister(s) Family Medical History: Cancer Additional Family Medical History / Comment(s): Breast cancer(3 sisters, 1 of which tested negative for BRCA. Another sister had a neuroendocrine endometrial cancer. A third sister had a cerebral aneurysm and CVA. Medications and Allergies Home Medications Medication Instructions Recorded Confirmed Type Levothyroxine Sodium 125 mcg PO DAILY 05/19/20 07/30/24 History Lisinopril-Hctz 20-12.5 mg 1 tab PO DAILY 05/19/20 07/30/24 History [Zestoretic 20-12.5] Cholecalciferol [Vitamin D3 (25 50 mcg PO DAILY 06/28/22 07/30/24 History Mcg = 1000 Iu)] Allergies Allergy/AdvReac Type Severity Reaction Status Date / Time No Known Allergies Allergy Verified 07/30/24 08:06 Exam Vital Signs Temp Pulse Resp BP Pulse Ox 07/30/24 08:07 98.2 F 69 16 105/66 100 Intake and Output 07/29/24 07/30/24 07/30/24 22:59 06:59 14:59 Other: Weight 98.883 kg Height 5 feet 7 inches, weight 218 pounds, BMI 34.1. This is a well-developed well-nourished white female who is alert and oriented times 3 in no acute distress. HEENT: Within normal limits. NECK: Supple without mass or thyromegaly. CHEST AND LUNGS: Clear to auscultation. HEART: Regular rate and rhythm. BREASTS: Are without mass or discharge. AXILLARY EXAM: Negative for adenopathy. BACK: Negative for CVA tenderness. ABDOMEN: Soft, nontender, without palpable masses. PELVIC EXAM: Normal external genitalia mild atrophy. Cervix and vagina appear normal mild atrophy. There is no unusual discharge. There is no evidence of prolapse. The uterus is midposition, nongravid size and nontender. There are no palpable adnexal masses or tenderness. RECTAL EXAM: Rectovaginal exam is negative for mass or tenderness and is negative for occult blood. EXTREMITIES: Nontender. IMPRESSION: 1. 54-year-old menopausal female with normal gynecologic exam. 2. Family history of breast cancer in multiple sisters. Also history of a sister with endometrial cancer. PLAN: 1. Pap smear was deferred since she had a negative Pap smear cotest on 06/28/2022. 2. Self breast awareness was discussed with the patient. We have also discussed symptoms associated with inflammatory breast cancer. 3. Screening mammogram was done today. 4. Osteoporosis prevention was discussed. I have stressed the importance of adequate calcium, vitamin D and regular exercise. Recommended amounts of calcium and vitamin D were also discussed. 5. Cancer genetic counseling and testing was and discussed and declined by the patient. She will let me know if she changes her mind about this. 6. She was advised to return in one year for her annual well woman exam.
== END ==
LOC: WWCWWP 07:42
PROVIDERS: ATTEND Obstetrics & Gynecology
DX: Z01.419 Encounter for gynecological examination (general) (routine) without abnormal findings (principal); Z12.31 Encounter for screening mammogram for malignant neoplasm of breast; Z87.891 Personal history of nicotine dependence